=== PATIENT | male | born 1995 | race African-American/Black ===

== ENCOUNTER 2017-04-04 00:12 | Emergency (ER) | payer SELFPAY ==
[~2017-04-04] VITALS: Ht 167.6 cm; Wt 95.0 kg
[2017-04-04 00:22] VITALS: Ht 167.6 cm; Wt 95.0 kg
--- NOTE | 2017-04-04 01:26 | RADRPT ---
PROCEDURE: XR Chest. CLINICAL INDICATION: Abdominal pain. TECHNIQUE: Single AP portable chest. COMPARISON: None. FINDINGS: The cardiac silhouette is mildly enlarged. The lungs are clear without pleural effusion or focal consolidation. No pneumothorax. The osseous structures and soft tissues are unremarkable. IMPRESSION: 1. No evidence for active cardiopulmonary disease. RPTAT:AAJJ Maricel Yoo Physician Date Time Electronically viewed and signed by Maricel Yoo Physician on 04/04/2017 01:26 CLAY/
[2017-04-04] MEDS ORDERED: OXYCODONE/ACETAMINOPHEN (5/325) TAB PO ONE (01:30)
[2017-04-04 01:44] LABS: BASOPHIL # 0.1 10^3/ul (0.0-0.1); BASOPHILS % 0.9 % (0.0-2.0); EOSINOPHILS # 0.1 10^3/ul (0.0-0.5); EOSINOPHILS % 1.1 % (0.0-7.0); HEMATOCRIT 40.7 % (42.0-52.0); HEMOGLOBIN 13.6 g/dl (14.0-18.0); LYMPHOCYTES # 2.4 10^3/ul (0.8-2.9); LYMPHOCYTES % 34.2 % (18.0-55.0); MEAN CORPUSCULAR HEMOGLOBIN 27.3 pg (29.0-33.0); MEAN CORPUSCULAR HGB CONC 33.4 g/dl (32.0-37.0); MEAN CORPUSCULAR VOLUME 81.7 fl (72.0-104.0); MEAN PLATELET VOLUME 9.3 fl (7.4-10.4); MONOCYTE # 0.5 10^3/ul (0.3-0.9); MONOCYTES % 6.6 % (0.0-13.0); NEUTROPHILS % 56.9 % (30.0-74.0); PLATELET COUNT 372 10^3/UL (140-415); RED BLOOD COUNT 4.98 10^6/ul (4.70-6.10); RED CELL DISTRIBUTION WIDTH 12.6 % (11.5-14.5)
[2017-04-04 02:08] LABS: ALANINE AMINOTRANSFERASE 39 IU/L (13-69); ALBUMIN 4.5 g/dl (3.3-4.9); ALKALINE PHOSPHATASE 104 IU/L (42-121); ANION GAP 20 (8-16); ASPARTATE AMINO TRANSFERASE 27 IU/L (15-46); BILIRUBIN,INDIRECT 0.3 mg/dl (0-1.1); BILIRUBIN,TOTAL 0.3 mg/dl (0.2-1.3); BLOOD UREA NITROGEN 17 mg/dl (7-20); CALCIUM 9.4 mg/dl (8.4-10.2); CARBON DIOXIDE 24 mmol/L (21-31); CHLORIDE 102 mmol/L (97-110); CREATININE 0.86 mg/dl (0.61-1.24); GLUCOSE 100 mg/dl (70-220); POTASSIUM 3.8 mmol/L (3.5-5.1); SODIUM 142 mmol/L (135-144); TOTAL PROTEIN 7.7 g/dl (6.1-8.1)
--- NOTE | 2017-04-04 02:09 | ERD ---
ER Documentation Chief Complaint Date/Time DATE: 04/04/17 TIME: 02:05 Chief Complaint CWP x 1 week, radiating to left shoulder and back; pt not in distress HPI 21-year-old man complains of sharp left-sided chest pain radiating to the left shoulder and back similar to multiple previous episodes of pericarditis. He states he has had 4 previous pericarditis exacerbations over the last couple of years. He states he uses ibuprofen daily. He states the pain is nonexertional , sharp, not associated with shortness of breath, dizziness, diaphoresis, or dizziness. He denies trauma, no fevers or chills, no cough, no headache or blurry vision, no calf or leg swelling. ROS All systems reviewed and are negative except as per history of present illness. Medications Home Meds Active Scripts Tramadol HCl (Tramadol HCl) 50 Mg Tablet, 50 MG PO TID for PAIN AND/OR INFLAMMATION, #15 TAB Prov:BRADEN SPENCER MD 04/04/17 Ibuprofen* (Ibuprofen*) 600 Mg Tablet, 600 MG PO Q8 for PAIN AND/OR INFLAMMATION , #30 TAB Prov:BRADEN SPENCER MD 04/04/17 Allergies Allergies: Uncoded Allergies: LOBSTER (Allergy, Mild, 04/04/17) PMhx/Soc Pericarditis Medical and Surgical Hx: pt denies Surgical Hx Hx Miscellaneous Medical Probl: Yes (Peracarditis ) Hx Alcohol Use: No Hx Substance Use: No Hx Tobacco Use: No Smoking Status: Never smoker FmHx Family History: diabetes Physical Exam Vitals Vital Signs Date Time Temp Pulse Resp B/P Pulse Ox O2 Delivery O2 Flow Rate FiO2 04/04/17 03:07 98.6 89 14 112/69 100 Room Air 04/04/17 02:30 98.3 75 18 120/68 100 Room Air 04/04/17 00:22 98.0 81 20 132/75 100 Physical Exam GENERAL: Well-developed, well-nourished, well-hydrated, in no apparent distress , looks nontoxic in appearance HEENT: Moist mucous membranes, pink conjunctiva, no cervical spine tenderness or step-off deformities, no goiter, no jaundice or icterus, extraocular movements intact without pain. No submandibular induration, and no pharyngeal erythema NEURO: Alert and oriented 3, cranial nerves II through XII intact bilaterally, pupils equal round reactive to light, no focal deficits or facial asymmetry, sensation intact distally Strength 5/5 in upper and lower extremities bilaterally CARDIAC: Regular rate and rhythm, no murmurs rubs or gallops LUNGS: Clear bilaterally no wheezing crackles or stridor ABDOMEN: Soft nontender, no guarding, no rigidity, no rebound, no psoas sign no obturator sign. Normoactive bowel sounds SKIN: Warm and dry to touch, no abrasions, contusions, or hematomas, no lacerations, no ecchymosis, no target lesions, and without ulcers EXTREMITIES: No clubbing cyanosis or edema, calves are bilaterally symmetrical, no Homans sign, no popliteal cord sign. Distal pulses equal and bilateral PSYCH: Normal affect without agitation or irritability Result Diagram: 04/04/1712404/04/175 Results 24 hrs Laboratory Tests Test 04/04/17 01:25 White Blood Count 7.010^3/ul Red Blood Count 4.9810^6/ul Hemoglobin 13.6g/dl Hematocrit 40.7% Mean Corpuscular Volume 81.7fl Mean Corpuscular Hemoglobin 27.3pg Mean Corpuscular Hemoglobin Concent 33.4g/dl Red Cell Distribution Width 12.6% Platelet Count 24032^3/UL Mean Platelet Volume 9.3fl Neutrophils % 56.9% Lymphocytes % 34.2% Monocytes % 6.6% Eosinophils % 1.1% Basophils % 0.9% Nucleated Red Blood Cells % 0.0/100WBC Neutrophils # 4.010^3/ul Lymphocytes # 2.410^3/ul Monocytes # 0.510^3/ul Eosinophils # 0.110^3/ul Basophils # 0.110^3/ul Nucleated Red Blood Cells # 0.010^3/ul Sodium Level 142mmol/L Potassium Level 3.8mmol/L Chloride Level 102mmol/L Carbon Dioxide Level 24mmol/L Anion Gap 20 Blood Urea Nitrogen 17mg/dl Creatinine 0.86mg/dl Glucose Level 100mg/dl Calcium Level 9.4mg/dl Total Bilirubin 0.3mg/dl Direct Bilirubin 0.00mg/dl Indirect Bilirubin 0.3mg/dl Aspartate Amino Transf (AST/SGOT) 27IU/L Alanine Aminotransferase (ALT/SGPT) 39IU/L Alkaline Phosphatase 104IU/L Troponin I < 0.012ng/ml Total Protein 7.7g/dl Albumin 4.5g/dl Globulin 3.20g/dl Albumin/Globulin Ratio 1.40 Lipase 24U/L Current Medications Medications (Trade) Dose Ordered Sig/Yandy Route PRN Reason Start Time Stop Time Status Last Admin Dose Admin Oxycodone/ Acetaminophen (Percocet (5/ 325)) 1 tab ONCE ONCE PO 04/04/17 01:30 04/04/17 01:31 DC 04/04/17 01:14 Procedures/MDM I administered Percocet 1 tablet p.o. for complaints of pain as patient had already used ibuprofen without relief. EKG performed, read by me revealed a normal sinus rhythm at 75 bpm, normal axis , narrow QRS complex, with slight CA depressions in all leads consistent with chronic pericarditis, no concerning ST elevations or depressions noted. Chest X-ray 1V Interpreted by me: Soft Tissue: No acute abnormalities Bones: No acute abnormalities Mediastinum/Cardiac Silhouette/Lungs: No acute abnormalities CBC and electrolytes are normal, liver function tests are normal, troponin was negative. Patient symptoms resolved and he appears healthy. He can be managed as an outpatient I recommended he continue NSAIDs as prescribed. Differential diagnoses considered, included but not limited to acute coronary syndrome, pulmonary embolism, aortic dissection, abdominal aortic aneurysm, sepsis, stroke, meningitis, encephalitis, pneumonia, appendicitis, cholecystitis , bowel obstruction, pyelonephritis, nephrolithiasis, cystitis, as well as metabolic, hematologic, and electrolyte abnormalities. As well as abscess, cellulitis, fractures, and dislocations. Patient feels much better at this time, and vital signs are normal, symptoms have improved. I did give strict instructions to return to the ED if symptoms continue or worsen, patient will otherwise follow-up with primary care physician. Patient understood instructions and agreed to plan. Disclaimer: Inadvertent spelling and grammatical errors are likely due to EHR/ dictation software use and do not reflect on the overall quality of patient care. Also, please note that the electronic time recorded on this note does not necessarily reflect the actual time of the patient encounter. Departure Diagnosis: Primary Impression: Chest pain Chest pain type: unspecified Qualified Code: R07.9 - Chest pain, unspecified type Additional Impression: Pericarditis Pericarditis type: unspecified type Chronicity: acute Qualified Code: I30.9 - Acute pericarditis, unspecified type Condition: BRADEN Chairez MD Apr 04, 2017 02:09
[2017-04-04] MEDS ORDERED: IBUP-1542 PO (02:18)
[2017-04-04 02:29] LABS: TROPONIN-I < 0.012 ng/ml (0.00-0.12)
[2017-04-04] MEDS ORDERED: TRAM50TA2 PO (02:58)
[2017-04-04 03:07] VITALS: BP 112/69; PULSE 89; RESP 14; TEMP 98.6
== END 2017-04-04 03:10 | disposition home or self-care (01) ==
LOC: E/R 00:12
DX: R07.89 Other chest pain (principal); I30.9 Acute pericarditis, unspecified
CPT/HCPCS: 36415; 71010; 80053; 83690; 84484; 85025; 93005

== ENCOUNTER 2017-08-29 04:49 | Observation (INO) | END 2017-08-30 19:29 | disposition home or self-care (01) ==